=== PATIENT | female | born 1935 | race Caucasian/White ===

== ENCOUNTER 2020-10-19 21:39 | Inpatient (IN) | payer MEDICARE, OTHER ==
[~2020-10-19] VITALS: Ht 160 cm; Wt 54.2 kg
[~2020-10-19 21:39] MED LIST: ULTRAM50 MG PO
[2020-10-19 21:40] VITALS: BP 115/39
[2020-10-19 22:57] LABS: BASO % 0.2 % (0.0-1.0); HEMATOCRIT 37.8 % (37.0-47.0); LYMPH # 0.6 10*3/uL (1.3-4.4); LYMPH % 4.8 % (27.0-41.0); MEAN CELL VOLUME 95.9 fl (81.0-99.0); MEAN CORPUSCULAR HGB 29.7 pg (27.0-31.0); MEAN PLATELET VOLUME 12.2 fl (9.6-12.3); MONO # 0.7 10*3/uL (0.1-1.0); MONO % 5.9 % (3.0-9.0); NEUT # 11.2 10*3/uL (2.3-7.9); NEUT % 88.6 % (47.0-73.0); PLATELET COUNT AUTOMATED 197 10*3/uL (130-400); RED BLOOD COUNT 3.94 10*6/uL (4.10-5.10); RED CELL DISTRI WIDTH 14.5 % (0-14.5); WHITE BLOOD COUNT 12.6 10*3/uL (4.8-10.8)
[2020-10-19 23:17] LABS: ALBUMIN 3.3 gm/dl (3.1-4.5); ALKALINE PHOSPHATASE 76 U/L (45-117); BUN 19 mg/dl (7-24); CHLORIDE 110 mmol/L (98-107); CREATININE 0.84 mg/dL (0.55-1.02); POTASSIUM 3.8 mmol/L (3.5-5.1); SGOT/AST 15 IU/L (3-35); SGPT/ALT 18 U/L (12-78); SODIUM 143 mmol/L (136-145); TOTAL PROTEIN 6.7 gm/dL (6.4-8.2)
[2020-10-19 23:19] LABS: TROPONIN I < 0.015 ng/ml (<0.045)
[2020-10-20 00:41] VITALS: BP 123/58
[2020-10-20 05:10] LABS: BILIRUBIN Negative (Negative); BLOOD 3+ (Negative); CLARITY Turbid (Clear); COLOR Dark Yellow (Yellow); GLUCOSE Negative (Negative); KETONE Trace (Negative); LEUKO ESTERASE 3+ (Negative); NITRITE Positive (Negative); PH 5.5 (4.5-8.0)
[2020-10-20 06:45] LABS: WBC TNTC wbc/hpf (0-5)
[2020-10-20 09:02] VITALS: BP 133/56
[2020-10-20 14:05] VITALS: BP 121/46
[2020-10-20 21:36] VITALS: BP 122/53
[2020-10-21 00:25] VITALS: BP 131/49
[2020-10-21 05:20] LABS: ALBUMIN 2.8 gm/dl (3.1-4.5); BUN 11 mg/dl (7-24); CHLORIDE 113 mmol/L (98-107); CHOLESTEROL 119 mg/dL (<200); CREATININE 0.53 mg/dL (0.55-1.02); POTASSIUM 3.1 mmol/L (3.5-5.1); SGOT/AST 18 IU/L (3-35); SGPT/ALT 15 U/L (12-78); SODIUM 143 mmol/L (136-145); TRIGLYCERIDES 65 mg/dl (<150)
[2020-10-21 05:26] LABS: ALKALINE PHOSPHATASE 70 U/L (45-117); FREE T4 0.97 ng/dl (0.76-1.46); LDL CHOLESTEROL 59 mg/dL (9-159)
[2020-10-21 06:12] LABS: BASO % 0.3 % (0.0-1.0); EOS % 0.4 % (1.0-4.0); HEMATOCRIT 36.6 % (37.0-47.0); LYMPH # 1.1 10*3/uL (1.3-4.4); LYMPH % 13.4 % (27.0-41.0); MEAN CELL VOLUME 96.1 fl (81.0-99.0); MEAN CORPUSCULAR HGB 29.9 pg (27.0-31.0); MEAN CORPUSCULAR HGB CONC 31.1 g/dl (33.0-37.0); MEAN PLATELET VOLUME 12.9 fl (9.6-12.3); MONO # 0.6 10*3/uL (0.1-1.0); MONO % 6.9 % (3.0-9.0); NEUT # 6.2 10*3/uL (2.3-7.9); NEUT % 78.7 % (47.0-73.0); PLATELET COUNT AUTOMATED 176 10*3/uL (130-400); RED BLOOD COUNT 3.81 10*6/uL (4.10-5.10); RED CELL DISTRI WIDTH 14.3 % (0-14.5); WHITE BLOOD COUNT 7.9 10*3/uL (4.8-10.8)
[2020-10-21 06:21] LABS: ACT PARTIAL THROMBO TIME 27.8 SECONDS (20.0-32.1); INTERNATIONAL NORM RATIO 1.1 (2.0-3.5)
[2020-10-21 09:10] VITALS: BP 136/60
[2020-10-21 17:30] VITALS: BP 129/60
[2020-10-21 18:00] VITALS: BP 141/47
[2020-10-21 18:30] VITALS: BP 141/47
[2020-10-22] VITALS: BP 148/57
[2020-10-22 06:21] LABS: BASO % 0.1 % (0.0-1.0); EOS # 0.1 10*3/uL (0.0-0.4); LYMPH % 14.2 % (27.0-41.0); MEAN CELL VOLUME 94.9 fl (81.0-99.0); MEAN CORPUSCULAR HGB 29.2 pg (27.0-31.0); MEAN CORPUSCULAR HGB CONC 30.8 g/dl (33.0-37.0); MEAN PLATELET VOLUME 12.7 fl (9.6-12.3); MONO # 0.6 10*3/uL (0.1-1.0); MONO % 8.7 % (3.0-9.0); NEUT # 5.2 10*3/uL (2.3-7.9); NEUT % 75.9 % (47.0-73.0); PLATELET COUNT AUTOMATED 184 10*3/uL (130-400); RED CELL DISTRI WIDTH 14.2 % (0-14.5); WHITE BLOOD COUNT 6.8 10*3/uL (4.8-10.8)
[2020-10-22 06:35] LABS: BUN 8 mg/dl (7-24); CHLORIDE 111 mmol/L (98-107); CREATININE 0.42 mg/dL (0.55-1.02); POTASSIUM 3.4 mmol/L (3.5-5.1); SODIUM 142 mmol/L (136-145)
[2020-10-22 08:00] VITALS: BP 139/50
[2020-10-22 12:00] VITALS: BP 100/85
[2020-10-22 16:00] VITALS: BP 111/75
[2020-10-22 20:00] VITALS: BP 154/63
[2020-10-23] VITALS: BP 147/50
[2020-10-23 08:00] VITALS: BP 142/49
[2020-10-23 12:00] VITALS: BP 133/48
[2020-10-23 16:00] VITALS: BP 110/62
[2020-10-23 20:00] VITALS: BP 138/61
[2020-10-24] VITALS: BP 142/67
[2020-10-24 08:00] VITALS: BP 116/62
[2020-10-24 12:00] VITALS: BP 124/50
[2020-10-24] MEDS ORDERED: METOPROLOL SUCC25 M2 PO (13:32)
[2020-10-24] MEDS ORDERED: ASPIRIN CHILDRE81 MG PO (13:32)
[2020-10-24] MEDS ORDERED: Bactroban Oint22 GM T (13:32)
[2020-10-24] MEDS ORDERED: ATORVASTATIN CA40 M1 PO (13:32)
[2020-10-24] MEDS ORDERED: OMNICEF300 MG PO (13:32)
[2020-10-24] MEDS ORDERED: Synthroid,Levo25 MCG PO (13:32)
[2020-10-24] MEDS ORDERED: XARELTO20 M1 PO ×2 (13:32→13:35)
== END 2020-10-24 16:05 | DRG 64 ==
LOC: ED 21:39 → 5E 10-20 07:48 → EDHOLD 10-20 07:48 → 5E 10-21 17:38
PROVIDERS: Emergency Medicine; Internal Medicine; Social Worker Clinical; ADMIT Emergency Medicine; ATTEND Emergency Medicine
PROC: 0HBRXZZ Excision of Toe Nail, External Approach (ICD-10-PCS; principal; 2020-10-23)
PROC: 0HBRXZZ Excision of Toe Nail, External Approach (ICD-10-PCS; 2020-10-23)
PROC: 0HBRXZZ Excision of Toe Nail, External Approach (ICD-10-PCS; 2020-10-23)
PROC: 0HBRXZZ Excision of Toe Nail, External Approach (ICD-10-PCS; 2020-10-23)
PROC: 0HBRXZZ Excision of Toe Nail, External Approach (ICD-10-PCS; 2020-10-23)
PROC: 0HBRXZZ Excision of Toe Nail, External Approach (ICD-10-PCS; 2020-10-23)
PROC: 0HBRXZZ Excision of Toe Nail, External Approach (ICD-10-PCS; 2020-10-23)
PROC: 0HBRXZZ Excision of Toe Nail, External Approach (ICD-10-PCS; 2020-10-23)
PROC: 0HBRXZZ Excision of Toe Nail, External Approach (ICD-10-PCS; 2020-10-23)
PROC: 0HBRXZZ Excision of Toe Nail, External Approach (ICD-10-PCS; 2020-10-23)
PROC: BD1BYZZ Fluoroscopy of Mouth/Oropharynx using Other Contrast (ICD-10-PCS; 2020-10-24)
DX: I63.9 Cerebral infarction, unspecified (principal); G93.41 Metabolic encephalopathy; N39.0 Urinary tract infection, site not specified; E44.0 Moderate protein-calorie malnutrition; M19.90 Unspecified osteoarthritis, unspecified site; D64.9 Anemia, unspecified; E87.6 Hypokalemia; B96.20 Unspecified Escherichia coli [E. coli] as the cause of diseases classified elsewhere; Z20.822 Contact with and (suspected) exposure to COVID-19; B35.1 Tinea unguium; I48.0 Paroxysmal atrial fibrillation; E55.9 Vitamin D deficiency, unspecified; E87.8 Other disorders of electrolyte and fluid balance, not elsewhere classified; R73.9 Hyperglycemia, unspecified; Z91.81 History of falling; Z82.49 Family history of ischemic heart disease and other diseases of the circulatory system; Z68.21 Body mass index [BMI] 21.0-21.9, adult

== ENCOUNTER → 2021-03-22 | Outpatient (CLI) | payer MEDICARE, OTHER ==
[~2021-03-22] MED LIST changes: +ASPIRIN CHILDRE81 MG PO; +ATORVASTATIN CA40 M1 PO; +Bactroban Oint22 GM T; +METOPROLOL SUCC25 M2 PO; +OMNICEF300 MG PO; +Synthroid,Levo25 MCG PO; +XARELTO20 M1 PO
== END | disposition home or self-care (01) ==
LOC: RESCLI 06:41
PROVIDERS: ATTEND Internal Medicine
DX: I48.91 Unspecified atrial fibrillation (principal); E03.9 Hypothyroidism, unspecified; E78.00 Pure hypercholesterolemia, unspecified; I63.9 Cerebral infarction, unspecified; Z79.82 Long term (current) use of aspirin; Z79.899 Other long term (current) drug therapy